=== PATIENT | male | born 1945 | race Caucasian/White ===

== ENCOUNTER 2018-03-22 22:47 | Inpatient (IN) ==
[2018-03-22] MEDS ORDERED: SOLU-MEDROL IV ONE (23:56)
[2018-03-22] MEDS ORDERED: DUONEB (A & A) INH ONE (23:56)
[2018-03-23 01:00] LABS: BASO# 0.05 X1000 (0.0-0.2); BASO% 0.6 % (0.0-0.8); EOS# 0.01 X1000 (0.0-0.7); EOS% 0.1 % (0.0-10.0); HEMATOCRIT 41.7 % (42.0-52.0); HEMOGLOBIN 13.5 g/dL (14.0-18.0); IMM GRAN# 0.03 X1000 (0.0-0.04); IMM GRAN% 0.4 % (0.0-0.5); LYMPH# 0.48 X1000 (1.2-3.4); LYMPH% 5.7 % (20.5-51.1); MCH 30.1 PG (27-31); MCHC 32.4 g/dL (33-37); MCV 93.1 FL (81-99); MONO# 1.46 X1000 (0.11-0.59); MONO% 17.2 % (1.7-9.3); MPV 10.6 FL (7.4-10.4); NEUT# 6.45 X1000 (1.4-6.5); PLT 178 X1000 (130-400); RBC 4.48 XMIL (4.7-6.1); RDW 13.6 % (11.5-14.5); WBC 8.48 X1000 (4.8-10.8)
[2018-03-23 01:09] LABS: AGAP 14; ALB/GLOB RATIO 1.5; ALBUMIN 3.9 g/dL (3.5-5.0); ALKALINE PHOSPHATASE 99 U/L (32-122); BUN 14 mg/dL (8-22); CALCIUM 8.8 mg/dL (8.8-10.2); CHLORIDE 94 mmol/L (98-107); COSMO 279; CREATININE 0.6 mg/dL (0.7-1.2); ESTIMATED GFR > 60; GLUCOSE 246 mg/dL (70-104); GOT 15 U/L (10-34); GPT 13 U/L (10-44); POTASSIUM 3.7 mmol/L (3.5-5.1); SODIUM 135 mmol/L (136-145); TCO2 27 mmol/L (25-35); TOTAL BILIRUBIN 0.86 mg/dL (0.20-1.00); TOTAL PROTEIN 6.5 g/dL (6.3-8.3)
[2018-03-23] MEDS ORDERED: TAMIFLU PO ONE (01:29)
--- NOTE | 2018-03-23 01:38 | PROVIDER DOCUMENTATION ---
This chart was entered by Job Newton Scribe, acting as scribe for Raúl Mcdowell MD. HPI-General Adult - General Chief Complaint: Near Syncope Stated Complaint: SYNCOPE Time Seen by Provider: 03/22/18 23:47 Source: family Allergies/Adverse Reactions: Patient Allergies Allergy/AdvReac Type Severity Reaction Status Date / Time No Known Allergies Allergy Verified 03/22/18 23:16 Home Medications: Home Medication List Medication Instructions Recorded Confirmed Last Taken Type Budesonide/Formoterol Inhaler 2 puff INH BID 07/26/15 05/22/17 05/21/17 09:00 History [Symbicort 160/4.5 Microgm Inhaler] Duloxetine [Cymbalta] 60 mg PO DAILY 07/26/15 05/22/17 05/21/17 09:00 History Glimepiride 2 mg PO DAILY 07/26/15 05/22/17 05/21/17 09:00 History Insulin Glargine,Hum.rec.anlog 40 units SQ BID 07/26/15 05/22/17 05/21/17 08:00 History [Lantus Solostar] Metformin HCl [Glucophage] 1,000 mg PO BID 07/26/15 05/22/17 05/21/17 09:00 History Carvedilol [Coreg] 3.125 mg PO BID #60 tablet 07/30/15 05/22/17 05/21/17 09:00 Rx Furosemide [Lasix] 40 mg PO DAILY #30 tablet 07/30/15 05/22/17 05/21/17 09:00 Rx LISINOpril [Prinivil] 10 mg PO DAILY #30 tablet 07/30/15 05/22/17 05/21/17 09: 00 Rx Aspirin [Aspirin EC] 1 tab PO DAILY 09/15/15 05/22/17 05/21/17 History PRAVAstatin [Pravachol] 40 mg PO QHS 09/16/15 05/22/17 05/20/17 21:00 History Sacubitril/Valsartan [Entresto 24 1 each PO BID 05/22/17 05/22/17 05/21/17 History mg-26 mg Tablet] Spironolactone 12.5 mg PO DAILY 05/22/17 05/22/17 05/21/17 History CefDINIR [Omnicef] 300 mg PO BID #14 cap 05/24/17 Unknown Rx Doxycycline 100 mg PO BID #14 tab 05/24/17 Unknown Rx Ipratropium/Albuterol INH 1 puff INH RTQ6H #1 inhaler 05/24/17 Unknown Rx [Combivent Respimat Inhaler] - History of Present Illness -Gen Adult Nature of Presenting Problems: Pt is a 73 y/o who comes to the ED with weakness, cough and SOB. Pt has generalized not feeling well for a couple of day. Tonight pt removed his home O2 of 2L to go to the bathroom. Family states he became weak and went to the ground. Family denies pt hitting his head. Location of Pain/Injury: reports: generalized Pain Radiation: reports: no radiation Quality of Pain: reports: aching Severity: reports: severe Onset/Duration: reports: gradual, 2 days ago Timing: reports: getting worse Context/Activities at Onset: reports: none Modifying Factors: improves with: nothing Associated Symptoms: reports: cough, shortness of breath, weakness. denies: diarrhea, fever/chills, trouble walking Similar Symptoms Previously?: No Recently seen or treated by another doctor?: No Review of Systems - Adult - REVIEW OF SYSTEMS - ADULT ROS:: ROS per family Constitutional: reports: other (gerneralized weakness). denies: chills, fever Eyes: reports: no symptoms reported Ears, Nose, Mouth & Throat: reports: no symptoms reported Cardiovascular: denies: chest pain, edema, palpitations Respiratory: reports: cough, shortness of breath. denies: wheezing Gastrointestinal: denies: abdominal pain, nausea, vomiting Genitourinary: denies: dysuria, discharge Musculoskeletal: denies: back pain, neck pain Integumentary: reports: no symptoms reported Neurological: denies: dizziness/vertigo, headache/migraines, paresthesia, slurred speech, syncope Psychiatric: reports: no symptoms reported Endocrine: reports: no symptoms reported Hematologic/Lymphatic: reports: no symptoms reported Allergic/Immunologic: reports: no symptoms reported All Other Systems: Reviewed and Negative Past History - Adult - PAST MEDICAL HISTORY-ADULT Review of Records: reports: Old Records Reviewed, Nursing Assessment Review, Medications Reviewed Major Childhood Illnesses: reports: denies history Cardiovascular: reports: CHF, HTN, hyperlipidemia Respiratory: reports: COPD, sleep apnea Genitourinary: reports: kidney disease - IMMUNIZATION STATUS Childhood Immunizations: See Nurse Assessment Flu Vaccine: See Nurse Assessment - FAMILY HISTORY Family History: reviewed, not pertinent - SOCIAL HISTORY Smoking: non-smoker, quit greater than 1 year Living Situation: family Physical Exam-General - PHYSICAL EXAM-ADULT Initial Vital Signs Reviewed: Yes - CONSTITUTIONAL General Appearance: alert, slow to respond (Family states pt is not at his baseline). negative: appears well (ill in appearance) - EYES Eyes: PERRL/EOMI, pink conjunctivae - HEAD, EARS, NOSE, MOUTH & THROAT HENMT: moist mucous membranes, normal ENT inspection, pharynx normal - NECK Neck: non-tender, full range of motion, supple, normal inspection - RESPIRATORY Respiratory: no pleuratic chest pain, decreased breath sounds, increased rate. negative: no respiratory distress (hypoxic on arrival with EMS) - CARDIOVASCULAR Cardiovascular: normal peripheral pulses, regular rate, rhythm - GASTROINTESTINAL (ABDOMEN) Abdominal Exam: non tender, soft - MUSCULOSKELETAL Back Exam: normal inspection, no CVA tenderness, no vertebral tenderness Extremity: normal range of motion, non-tender, normal gait, pedal edema - SKIN Integumentary: normal color, normal turgor, warm/dry - NEUROLOGIC Neurologic: grossly normal, no motor/sensory deficits - PSYCHIATRIC Psych/Mental Status: normal mood/affect, normal thought process, oriented x 3. negative: normal thought content (Pt slow to answer questions and family provides ROS) Progress - PLAN OF CARE/RESULTS Progress/Plan/Lab Results: Vital Signs - 8 hr 03/22/18 22:51 Temperature 98.6 F Pulse Rate 95 H Respiratory Rate 22 Blood Pressure 134/65 O2 Sat by Pulse Oximetry 99 Result Diagrams: 03/23/18 23:44 03/23/18 23:44 - EKG 1 Time of EKG reading by physician:: 23:45 EKG Read and Signed by:: Raúl Mcdowell EKG Interpretation (*Must complete 3 of following elements*): Abnormal Rate: 88 Rhythm: Sinus with 1st degree AV block [place]: left QRS: RBB, LVH Comments: Inferior infarct - XRAY 1 XRAY Study: Chest Impression: Abnormal, See EMR Report XRAY Interpretation: fluid overload per ED Dr Mcdowell Departure - Departure Date of Disposition Decision: 03/23/18 Time of Disposition Decision: 01:37 DIAGNOSIS: Influenza A Disposition: ADMITTED INPATIENT 09 Certified Medical Emergency: Emergent Condition: Stable Referrals and Follow-Ups: Disha Henning MD [Primary Care Provider] - - Critical Care Note This patient required my direct & personal management of CC.: No Attestation - Physician/ LILLIAN Attestation Patient care was provided by Advanced Practice Provider:: No The physician spent face to face time with patient:: Yes Advanced Practice Provider documentation review:: Supervising physician onsite and consulted in the evaluation and care of this patient. The physician did have a face to face encounter with the patient. This chart was documented by the indicated scribe, (Job Newton Scribe) and accurately reflects the services I performed and decisions made by me, Raúl Mcdowell MD, as attested by the provider's signature.
--- NOTE | 2018-03-23 04:30 | HISTORY AND PHYSICAL ---
CHIEF COMPLAINT: Shortness of breath and fall. HISTORY OF PRESENT ILLNESS: The patient is a 73-year-old male who comes in from home after a fall, but it was related to weakness, he has very significant issues getting up and around. He has not been feeling very well. He has been short of breath. Positive cough. He is on home O2 and usually 2 L. He took it off, he became very weak and went to the ground, but he did not pass out and he did not fall and hit his head. The patient came in with significant shortness of breath. He was hypoxic and tachypneic. No fever was noted though; however, with pending his workup he was found to have flu A positivity. He reports taking the flu shot. The patient has a history of CHF and COPD. He stopped smoking about 20 years ago, but he at least had a 20-pack- year history prior to that. Again workup in the ER revealed hypoxia, flu A, and COPD exacerbation for which he was admitted. He does report a cough productive of yellowish sputum. PAST MEDICAL HISTORY: 1. COPD. 2. Diabetes. 3. CHF. 4. Anxiety and depression. 5. Kidney stones. 6. Sleep apnea. PAST SURGICAL HISTORY: 1. Appendectomy. 2. Lithotripsy. FAMILY HISTORY: Father had prostate cancer. Mother had lung cancer and heart disease. ALLERGIES: No known drug allergies. MEDICATIONS: Reportedly he takes Pravachol 40, aspirin 81, Symbicort, Cymbalta, glimepiride, glargine, metformin, Entresto, spironolactone, Coreg, Lasix, DuoNeb and Prinivil. REVIEW OF SYSTEMS: His last EF per echocardiogram here was in June of 2017 that we have on record showing an EF of 60%, so he may just have diastolic dysfunction, although interestingly enough he is on Entresto or at least possibly on Entresto. His last echocardiogram was normal. In any case the patient was admitted for shortness of breath. Review of systems is otherwise from the 10- point review of systems. PHYSICAL EXAMINATION: VITAL SIGNS: Blood pressure was 133/67, heart rate of 90, respiratory rate of 21, temperature was 98.6 degrees, O2 sat was 95% on 4 L. GENERAL: A well-developed male in no acute distress. He has a cough and coryza on exam. HEAD: Normocephalic atraumatic. EYES: Pupils are equal, round and reactive to light. Extraocular moves were intact. Sclerae are anicteric. NECK: Supple. CARDIOVASCULAR: Regular rate and rhythm. No murmurs, gallops, or rubs. PULMONARY: He had diffuse rhonchi, occasional wheezing, no rales. GASTROINTESTINAL: Soft and nontender. Belly was protuberant. Bowel sounds positive. NEUROLOGIC: Cranial nerves II-XII were intact. MUSCULOSKELETAL: Was 4/5 in all 4 extremities. Somewhat limited mobility though and just sitting up. He is just very weak. SKIN EXAM: Clean, dry and intact. He had early changes consistent with rhinophyma. LABORATORY DATA: White count 8, hemoglobin and hematocrit 13 and 41, platelets 178,000. Basic was normal. ProBNP of 857. Influenza test was positive. Chest x-ray was clear with cardiomegaly, some haziness both sides, some vascular congestion. PROBLEM LIST: Assessment: A 73-year-old gentleman with history of congestive heart failure, diabetes, chronic obstructive pulmonary disease who presents with influenza and a chronic obstructive pulmonary disease exacerbation. 1. Influenza A. We will continue oseltamivir and follow closely. 2. Chronic obstructive pulmonary disease exacerbation. We will continue breathing treatments, steroids and follow. I have not initiated antibiotics, at this point I think the influenza is a major trigger. 3. Congestive heart failure with mild decompensation. We will continue diuretics, check serial enzymes, check an echocardiogram and follow clinically. 4. Diabetes. We will monitor blood sugars especially while on steroids. Continue sliding scale insulin. Check hemoglobin A1c. 5. Hypertension. We will continue to monitor closely. cc: Mina Lee MD
[2018-03-23] MEDS ORDERED: ZOFRAN IV PRN (04:51)
[2018-03-23] MEDS ORDERED: SODIUM CHLORIDE 0.9% INJ SCH (04:51)
[2018-03-23] MEDS: DUONEB (A & A) INH SCH ×6 (04:51→23:05)
[2018-03-23] MEDS ORDERED: DUONEB (A & A) INH PRN (04:51)
--- NOTE | 2018-03-23 07:53 | Diag Imaging Result Doc PS360 ---
EXAM: CHEST-PORTABLE 03/22/2018 HISTORY: sob TECHNIQUE: AP portable at 0023 on 03/23/2018. COMMENT: The inspiration is suboptimal. There is bibasilar atelectatic appearing opacity. The density of the opacities in the left base has diminished since 05/24/2017. Some of this may be due to fibrosis given the long-standing nature of the abnormality. IMPRESSION: Bibasilar atelectasis and/or fibrosis. Electronically signed by Luís Andrews 03/23/2018 7:51 AM
--- NOTE | 2018-03-23 08:07 | EKG Report ---
Test Performed on : 03/22/2018 11:45:16 PM Test Reason : sob Blood Pressure : / mmHG Vent. Rate : 088 BPM Atrial Rate : 088 BPM P-R Int : 270 ms QRS Dur : 144 ms QT Int : 396 ms P-R-T Axes : 054 -69 043 degrees QTc Int : 479 ms Sinus rhythm. with 1st degree AV block. Left axis deviation Right bundle branch block Minimal voltage criteria for LVH, may be normal variant Inferior infarct (cited on or before 22-MAY-2017) Abnormal ECG When compared with ECG of 22-MAY-2017 10:17, No significant change was found Unconfirmed Result
[2018-03-23] MEDS: LOVENOX SUBQ SCH (08:44)
[2018-03-23] MEDS: PROTONIX IV SCH (08:44)
[2018-03-23] MEDS: HUMALOG SUBQ SCH ×4 (08:44→22:02)
[2018-03-23] MEDS: TAMIFLU PO SCH ×2 (08:45→20:11)
[2018-03-23] MEDS: SOLU-MEDROL IV SCH (12:13)
--- NOTE | 2018-03-23 14:06 | ECHO REPORT ---
ORDER DATE: 03/23/2018 INTERPRETING PHYSICIAN: Jeffrey Ritchie MD ECHOCARDIOGRAPHIC MEASUREMENTS: Interventricular septum 1.4 cm. Left ventricular posterior wall 1.5 cm. Diastolic diameter 5.3 cm. Left atrium 3.9 cm. Aorta 3.8 cm. Left ventricular systolic diameter 3.4 cm. SUMMARY OF THE 2-DIMENSIONAL IMAGING: Technically suboptimal study. Poor acoustic window. Endocardium not well visualized in all views. Mitral valve was normal. Tricuspid valve was normal. The aortic valve leaflets were trileaflet. Pulmonic valve was normal. Peak velocity across the aortic valve less than 2 m/sec. There is no aortic stenosis or regurgitation. There is trace to mild mitral regurgitation. Trace tricuspid regurgitation. Peak velocity across the tricuspid valve was 2.2 m/sec. Normal left ventricular cavity size. Estimated ejection fraction of 55%. Endocardium not well visualized in all views. There is no pericardial effusion or obvious intracardiac mass or thrombus seen. Anterior echo-free space suggestive of pericardial fat pad noted. cc: MD Mina Sheets MD
[2018-03-23] MEDS ORDERED: LIPITOR PO SCH (21:00)
[2018-03-23] MEDS: COREG PO SCH (22:02)
[2018-03-23] MEDS: ENTRESTO 24 MG-26 MG TABLET PO SCH (22:02)
[2018-03-23] MEDS: BASAGLAR SUBQ SCH (22:03)
[2018-03-24] MEDS: SOLU-MEDROL IV SCH (00:29)
[2018-03-24] MEDS: DUONEB (A & A) INH SCH ×3 (03:10→11:34)
[2018-03-24] MEDS: LOVENOX SUBQ SCH (06:38)
[2018-03-24] MEDS: PROTONIX IV SCH (06:38)
[2018-03-24] MEDS: HUMALOG SUBQ SCH (06:38)
[2018-03-24 07:08] LABS: HEMATOCRIT 42.6 % (42.0-52.0); IMM GRAN# 0.02 X1000 (0.0-0.04); IMM GRAN% 0.3 % (0.0-0.5); LYMPH% 6.8 % (20.5-51.1); MCH 30.6 PG (27-31); MCHC 32.9 g/dL (33-37); MCV 93.2 FL (81-99); MONO% 8.2 % (1.7-9.3); MPV 9.9 FL (7.4-10.4); NEUT# 6.24 X1000 (1.4-6.5); NEUT% 84.7 % (42.2-75.2); PLT 227 X1000 (130-400); RBC 4.57 XMIL (4.7-6.1); RDW 13.4 % (11.5-14.5); WBC 7.36 X1000 (4.8-10.8)
[2018-03-24 07:18] LABS: AGAP 16; ALB/GLOB RATIO 1.2; ALBUMIN 3.8 g/dL (3.5-5.0); ALKALINE PHOSPHATASE 86 U/L (32-122); BUN 20 mg/dL (8-22); CALCIUM 8.8 mg/dL (8.8-10.2); CHLORIDE 91 mmol/L (98-107); COSMO 286; CREATININE 0.8 mg/dL (0.7-1.2); ESTIMATED GFR > 60; GLUCOSE 330 mg/dL (70-104); GOT 22 U/L (10-34); GPT 16 U/L (10-44); POTASSIUM 3.5 mmol/L (3.5-5.1); SODIUM 135 mmol/L (136-145); TCO2 28 mmol/L (25-35); TOTAL BILIRUBIN 0.53 mg/dL (0.20-1.00); TOTAL PROTEIN 7.1 g/dL (6.3-8.3)
[2018-03-24 07:25] LABS: HEMOGLOBIN A1C 7.4 % (4.8-6.0)
--- NOTE | 2018-03-24 07:39 | Diag Imaging Result Doc PS360 ---
EXAM: CHEST-2 VIEWS 03/24/2018 HISTORY: hypoxia TECHNIQUE: PA and lateral chest COMMENT: There is atelectasis appearing opacity bilaterally particularly in the left lower lobe. There has been gradual improvement in this regard since 05/24/2017. Some of the opacity may be due to fibrosis. IMPRESSION: Atelectasis versus fibrosis bilaterally. Electronically signed by Luís Andrews 03/24/2018 7:37 AM
[2018-03-24 07:51] VITALS: BP 153/84
[2018-03-24] MEDS: ENTRESTO 24 MG-26 MG TABLET PO SCH (08:54)
[2018-03-24] MEDS: TAMIFLU PO SCH (08:54)
[2018-03-24] MEDS: COREG PO SCH (08:54)
[2018-03-24] MEDS: BASAGLAR SUBQ SCH (08:55)
[2018-03-24] MEDS ORDERED: ALDACTONE PO SCH (09:00)
--- NOTE | 2018-03-24 15:33 | DISCHARGE SUMMARY ---
DATE: 03/24/2018 DISPOSITION: Home. FOLLOWUP: Patient's PCP, Dr. Disha Henning. CONSULTATION DURING THIS ADMISSION: None. IMAGING STUDIES OF SIGNIFICANCE: 1. A chest x-ray was done initially which showed bibasilar atelectasis and/or fibrosis. 2. An echocardiogram showed an ejection fraction of 55 with normal left ventricular cavity size. 3. A repeat chest x-ray this morning showed atelectasis versus fibrosis bilaterally. ADMISSION DIAGNOSES: 1. Influenza A. 2. Chronic obstructive pulmonary disease exacerbation. 3. Congestive heart failure with mild decompensation. 4. Diabetes mellitus. DIAGNOSES AT THE TIME OF DISCHARGE: 1. Acute on chronic hypoxemic respiratory failure. Patient is back on 2 liters; I guess that is what he is on at home. 2. Chronic obstructive pulmonary disease exacerbation. 3. Chronic pulmonary fibrosis. 4. Diabetes mellitus; presenting A1c 7.4. 5. Hypertension. 6. Influenza pneumonia. The patient is on Tamiflu for a total of 5 days. DISCHARGE MEDICATIONS: 1. Metformin 1 g b.i.d. 2. Glimepiride 2 mg daily. 3. Insulin glargine 40 units b.i.d. 4. Carvedilol 3.125 b.i.d. 5. Entresto 1 tablet b.i.d. 6. Spironolactone 12.5 mg daily. 7. Atorvastatin 40 mg p.o. at bedtime. 8. Doxycycline 100 mg b.i.d. 9. Tamiflu 75 mg b.i.d. 10. Prednisone 20 mg p.o. daily. PRESENTING COMPLAINT: Shortness of breath. HISTORY OF PRESENT COMPLAINT: Mr. Mane is a 73-year-old male, who has COPD with chronic hypoxemia on home oxygen of 2 L, came to the emergency department because of progressively worsening shortness of breath, cough with yellow expectoration. Upon presentation, patient was evaluated, was found to be positive for flu. A chest x-ray did show bibasilar atelectasis and some fibrosis. He was subsequently admitted for COPD exacerbation. HOSPITAL COURSE: Mr. Mane was initially admitted to the medical floor, was started on IV antibiotics and Tamiflu, as well as steroids and bronchodilation therapy. Over the course of the short hospital stay, he did improve remarkably. Shortness of breath got better. He was transitioned back to his 2 L of nasal cannula oxygenation. Cough expectorant also improved. He is currently on Tamiflu and his IV antibiotics have been switched to p.o. doxycycline to cover for possible MRSA as well. This morning Mr. Mane refers to feel a lot better. Vitals: Blood pressure is 153/84, pulse is 73, respiration is 18, temperature is 97.5 degrees. The patient is saturating about 94% on 2 L. Physical exam is unremarkable, except for mild air entry reduction in both lung cox. No crepitations and no rhonchi. Mr. Mane is fairly stable for discharge. He is going to follow up with his primary care doctor. He is also advised to have a follow-up with a flat locker as well. All the discharge instructions have been discussed with him and he voices understanding. TIME SPENT FOR DISCHARGE: 36 minutes. cc: MD Disha Joyce MD
== END 2018-03-24 12:15 | disposition home or self-care (01) | DRG 193 ==
LOC: ED 22:47 → SUATTDRO 03-23 06:13 → EDIPHOLD 03-23 06:13 → 3N 03-23 14:32
PROVIDERS: ATTEND Internal Medicine
CPT/HCPCS: 71010; 71020; 71045; 71046; 80053; 82550; 82948; 83036; 83880; 84484; 85025; 87275; 87276; 87804; 93005; 93306; 94640; 94761; 96372; 96374; 96375; 96376; 99285; A9270; C9113; J1650; J1815; J2930; S0164; XXXXX

== ENCOUNTER 2019-04-17 17:46 | Inpatient (IN) ==
[2019-04-17] MEDS ORDERED: SOLU-MEDROL IV ONE (18:08)
[2019-04-17] MEDS ORDERED: DUONEB (A & A) INH ONE (18:08)
--- NOTE | 2019-04-17 18:12 | Diag Imaging Result Doc PS360 ---
EXAM: CHEST-2 VIEWS 04/17/2019 HISTORY: SOB TECHNIQUE: PA and lateral chest COMMENT: There is ill-defined opacity in the lingula and left lower lobe which is worse than on 08/08/2018. IMPRESSION: Atelectasis versus pneumonia in the left lower lobe and lingula. Electronically signed by Luís Andrews 04/17/2019 6:09 PM
[2019-04-17] MEDS ORDERED: LEVAQUIN 750 MG/D5W 750 MG/150 ML IVPB IV ONE (18:13)
[2019-04-17 18:56] LABS: BASO# 0.05 X1000 (0.0-0.2); BASO% 0.7 % (0.0-0.8); EOS# 0.19 X1000 (0.0-0.7); EOS% 2.6 % (0.0-10.0); HEMATOCRIT 41.2 % (42.0-52.0); HEMOGLOBIN 13.3 g/dL (14.0-18.0); IMM GRAN# 0.02 X1000 (0.0-0.04); IMM GRAN% 0.3 % (0.0-0.5); LYMPH# 1.27 X1000 (1.2-3.4); LYMPH% 17.1 % (20.5-51.1); MCH 30.6 PG (27-31); MCHC 32.3 g/dL (33-37); MCV 94.9 FL (81-99); MONO# 1.41 X1000 (0.11-0.59); NEUT% 60.3 % (42.2-75.2); PLT 189 X1000 (130-400); RBC 4.34 XMIL (4.7-6.1); RDW 13.4 % (11.5-14.5); WBC 7.44 X1000 (4.8-10.8)
[2019-04-17 19:05] LABS: INR 1.02; PROTIME 13.5 Seconds (11.0-16.0)
[2019-04-17 19:05] LABS: URINE SOURCE CLEAN CATCH
[2019-04-17 19:06] LABS: PTT 30.6 Seconds (22.3-41.8)
--- NOTE | 2019-04-17 19:06 | PROVIDER DOCUMENTATION ---
This chart was entered by Beckie Cavanaugh Scribe, acting as scribe for Zen Garsia MD. HPI-General Adult - General Source: patient - History of Present Illness -Gen Adult Nature of Presenting Problems: pt is a 74 yr old male presenting with 3 day complaint of productive cough and fatigue, pt denies fever, shortness of breath or chest pain, pt reports he went to urgent care 1st but was referred to ER due to low BP and no xray availability. pt denies any other complaints. pt is on constant 2L home o2 Location of Pain/Injury: reports: none Pain Radiation: reports: no radiation Quality of Pain: reports: none Severity: reports: moderate Onset/Duration: reports: 3 days ago Timing: reports: still present Context/Activities at Onset: reports: light activity Modifying Factors: improves with: nothing Associated Symptoms: reports: cough, fatigue. denies: EENT symptoms, fever/chills, sinus congestion/drainage, shortness of breath Similar Symptoms Previously?: No Recently seen or treated by another doctor?: No <Zen Garsia - Last Filed: 04/17/19 19:48> <Santos Henning - Last Filed: 04/17/19 20:36> - General Chief Complaint: Shortness of Breath Stated Complaint: "PNEUMONIA" CLINIC REFERRED Time Seen by Provider: 04/17/19 18:05 Allergies/Adverse Reactions: Patient Allergies Allergy/AdvReac Type Severity Reaction Status Date / Time No Known Allergies Allergy Verified 03/22/18 23:16 Home Medications: Home Medication List Medication Instructions Recorded Confirmed Last Taken Type Budesonide/Formoterol Inhaler 2 puff INH BID 07/26/15 03/23/18 05/21/17 09:00 History [Symbicort 160/4.5 Microgm Inhaler] Glimepiride 2 mg PO DAILY 07/26/15 03/23/18 05/21/17 09:00 History Insulin Glargine,Hum.rec.anlog 40 units SQ BID 07/26/15 03/23/18 05/21/17 08:00 History [Lantus Solostar] Metformin HCl [Glucophage] 1,000 mg PO BID 07/26/15 03/23/18 05/21/17 09:00 History Carvedilol [Coreg] 3.125 mg PO BID #60 tablet 07/30/15 03/23/18 05/21/17 09:00 Rx Sacubitril/Valsartan [Entresto 24 1 each PO BID 05/22/17 03/23/18 05/21/17 History mg-26 mg Tablet] Spironolactone 12.5 mg PO DAILY 05/22/17 03/23/18 05/21/17 History Ipratropium/Albuterol INH 1 puff INH RTQ6H #1 inhaler 05/24/17 03/23/18 Unknown Rx [Combivent Respimat Inhaler] ATORVAstatin [Lipitor] 40 mg PO QHS 03/23/18 03/23/18 Unknown History Doxycycline 100 mg PO BID #14 tab 03/24/18 Unknown Rx Oseltamivir [Tamiflu] 75 mg PO BID #8 cap 03/24/18 Unknown Rx Prednisone [Deltasone] 20 mg PO DAILY #5 tab 03/24/18 Unknown Rx Review of Systems - Adult - REVIEW OF SYSTEMS - ADULT Constitutional: reports: fatique. denies: chills, fever Eyes: reports: no symptoms reported Ears, Nose, Mouth & Throat: denies: ear pain, sinus problem, throat pain Cardiovascular: denies: chest pain, palpitations, syncope Respiratory: reports: cough. denies: dyspnea on exertion, shortness of breath Gastrointestinal: denies: abdominal pain, diarrhea, nausea, vomiting Genitourinary: reports: no symptoms reported Musculoskeletal: reports: no symptoms reported Integumentary: reports: no symptoms reported Neurological: denies: dizziness/vertigo, headache/migraines Psychiatric: reports: no symptoms reported Endocrine: reports: no symptoms reported Hematologic/Lymphatic: reports: no symptoms reported Allergic/Immunologic: reports: no symptoms reported All Other Systems: Reviewed and Negative <Zen Garsia - Last Filed: 04/17/19 19:48> Past History - Adult - PAST MEDICAL HISTORY-ADULT Review of Records: reports: Old Records Reviewed, Nursing Assessment Review, Medications Reviewed, Social history reviewed & non-contributory. Major Childhood Illnesses: reports: denies history Cardiovascular: reports: CHF, HTN, hyperlipidemia Respiratory: reports: COPD, sleep apnea Gastrointestinal: reports: denies history Obstetrical/Gynecological: reports: denies history Genitourinary: reports: kidney disease Musculoskeletal: reports: denies history Neurological: reports: denies history Endocrine/Immune: reports: denies history Other Conditions: reports: denies history - IMMUNIZATION STATUS Childhood Immunizations: See Nurse Assessment Flu Vaccine: See Nurse Assessment - FAMILY HISTORY Family History: reviewed, not pertinent - SOCIAL HISTORY Smoking: quit greater than 1 year Substance Use: denies <Zen Garsia - Last Filed: 04/17/19 19:48> Physical Exam-General - PHYSICAL EXAM-ADULT Initial Vital Signs Reviewed: Yes - CONSTITUTIONAL General Appearance: appears well, alert, no apparent distress, obese - EYES Eyes: PERRL/EOMI - HEAD, EARS, NOSE, MOUTH & THROAT HENMT: normocephalic/atraumatic, moist mucous membranes, normal ENT inspection - RESPIRATORY Respiratory: chest non-tender, lungs clear, no respiratory distress, no accessory muscle use, decreased breath sounds (diminished bilateral bases) - CARDIOVASCULAR Cardiovascular: normal peripheral pulses, regular rate, rhythm, no edema - GASTROINTESTINAL (ABDOMEN) Abdominal Exam: normal bowel sounds, non tender, soft - LYMPHATIC Lymphatic: no adenopathy - MUSCULOSKELETAL Back Exam: normal inspection, no CVA tenderness, no vertebral tenderness Extremity: normal range of motion, non-tender, normal gait, normal inspection - SKIN Integumentary: normal color, normal turgor, warm/dry - NEUROLOGIC Neurologic: grossly normal, no motor/sensory deficits - PSYCHIATRIC Psych/Mental Status: normal mood/affect <Zen Garsia - Last Filed: 04/17/19 19:48> Progress - PLAN OF CARE/RESULTS Progress/Plan/Lab Results: Vital Signs - 8 hr 04/17/19 17:53 Temperature 97.7 F Pulse Rate 100 H Respiratory Rate 22 Blood Pressure 125/68 O2 Sat by Pulse Oximetry 91 L Orders Category Date Time Status Cardiac Monitoring NOW Care 04/17/19 17:58 Active IV Insertion NOW Care 04/17/19 17:58 Active NEWS Score >or=5:Order NEWS Bundle S.O. NOW Care 04/17/19 17:57 Active Notify Provider of NEWS Score NOW Care 04/17/19 17:58 Active CHEST-2 VIEWS [RAD] Stat Exams 04/17/19 17:50 Taken BLOOD CULTURE [BLDCUL] Stat Lab 04/17/19 17:58 Uncollected CBC WITH DIFF [HEME] Stat Lab 04/17/19 17:58 Uncollected CK PROFILE [SP CHEM] Stat Lab 04/17/19 17:58 Uncollected COMPREHENSIVE METABOLIC PANEL [CHEM] Stat Lab 04/17/19 17:58 Uncollected INFLUENZA SCREEN A/B Stat Lab 04/17/19 18:08 Uncollected LACTATE, PLASMA [CHEM] Lab 04/17/19 18:00 Uncollected LACTATE, PLASMA [CHEM] Lab 04/17/19 21:00 Uncollected LACTATE, PLASMA [CHEM] Lab 04/18/19 00:00 Uncollected PROTIME WITH INR [COAG] Stat Lab 04/17/19 17:58 Uncollected PTT [COAG] Stat Lab 04/17/19 17:58 Uncollected TROPONIN T HIGH SENSITIVITY Stat Lab 04/17/19 17:58 Uncollected URINALYSIS W/POSS RFLX CULT [URINALYSIS] Stat Lab 04/17/19 17:58 Uncollected Albuterol 2.5MG/Ipratrop 0.5MG [Duoneb (A & A)] Med 04/17/19 18:08 Discontinued 3 ml INH NOW ONE Methylprednisolone Sod Succ [Solu-Medrol] Med 04/17/19 18:08 Discontinued 125 mg IV STAT ONE Aerosol Treatments Routine Oth 04/17/19 18:08 Active Aerosol Treatments Stat Oth 04/17/19 18:08 Active O2 Per Protocol Stat Oth 04/17/19 17:58 Active Result Diagrams: 04/17/19 18:33 04/17/19 18:33 - XRAY 1 XRAY Study: Chest Impression: Abnormal (Signed EXAM: CHEST-2 VIEWS 04/17/2019 HISTORY: SOB TECHNIQUE: PA and lateral chest COMMENT: There is ill-defined opacity in the lingula and left lower lobe which is worse than on 08/08/2018. IMPRESSION: Atelectasis versus pneumonia in the left lower lobe and lingula. Electronically signed by Luís Andrews 04/17/2019 6:09 PM 04/17/191808 Interpreting Physician: Luís Andrews MD Dictated Date/Time: 04/17/191807 cc: Zen Garsia MD; Disha Henning MD) <Zen Garsia - Last Filed: 04/17/19 19:48> - PLAN OF CARE/RESULTS Progress/Plan/Lab Results: Vital Signs - 8 hr 04/17/19 17:53 04/17/19 18:22 04/17/19 19:26 Temperature 97.7 F Pulse Rate 100 H 100 H 85 Respiratory Rate 22 18 12 Blood Pressure 125/68 122/59 O2 Sat by Pulse Oximetry 91 L 96 04/17/19 18:40 Influenza Screen - Final Nasopharyngeal Laboratory Results - last 24 hr 04/17/19 04/17/19 04/17/19 18:33 18:33 18:33 WBC RBC Hgb Hct MCV MCH MCHC RDW Std Deviation Plt Count MPV Immature Gran % (Auto) Neut % (Auto) Lymph % (Auto) Schuyler % (Auto) Eos % (Auto) Baso % (Auto) Immature Gran # (Auto) Neut # (Auto) Lymph # (Auto) Schuyler # (Auto) Eos # (Auto) Baso # (Auto) PT INR PTT (Actin FS) Sodium 136 Potassium 3.8 Chloride 97 L Carbon Dioxide 24 L Anion Gap 15 BUN 20 Creatinine 0.9 Estimated GFR/1.73 m2 > 60 BUN/Creatinine Ratio 22 Glucose 248 H Calculated Osmolality 283 Calcium 8.7 L Total Bilirubin 0.67 AST 16 ALT 13 Alkaline Phosphatase 98 Creatine Kinase 80 Troponin T High Sens 15 Total Protein 6.0 L Albumin 3.3 L Globulin 2.7 Albumin/Globulin Ratio 1.2 Plasma Lactate 3.1 H Urine Source Urine Color Urine Turbidity Urine pH Ur Specific [place] Urine Protein Ur Glucose (Stick) Ur Ketones (Stick) Urine Blood Urine Nitrite Urine Bilirubin Urobilinogen Dipstick Urine Leukocytes Urine WBC (Auto) Urine RBC (Auto) U Epithel Cells (Auto) Urine Bacteria (Auto) Urine Crystals Small Round Cells Urine Casts Urine Yeast-like Cells 04/17/19 04/17/19 04/17/19 18:33 18:33 18:52 WBC 7.44 RBC 4.34 L Hgb 13.3 L Hct 41.2 L MCV 94.9 MCH 30.6 MCHC 32.3 L RDW Std Deviation 13.4 Plt Count 189 MPV 10.0 Immature Gran % (Auto) 0.3 Neut % (Auto) 60.3 Lymph % (Auto) 17.1 L Schuyler % (Auto) 19.0 H Eos % (Auto) 2.6 Baso % (Auto) 0.7 Immature Gran # (Auto) 0.02 Neut # (Auto) 4.50 Lymph # (Auto) 1.27 Schuyler # (Auto) 1.41 H Eos # (Auto) 0.19 Baso # (Auto) 0.05 PT 13.5 INR 1.02 PTT (Actin FS) 30.6 Sodium Potassium Chloride Carbon Dioxide Anion Gap BUN Creatinine Estimated GFR/1.73 m2 BUN/Creatinine Ratio Glucose Calculated Osmolality Calcium Total Bilirubin AST ALT Alkaline Phosphatase Creatine Kinase Troponin T High Sens Total Protein Albumin Globulin Albumin/Globulin Ratio Plasma Lactate Urine Source CLEAN CATCH Urine Color YELLOW Urine Turbidity HAZY Urine pH 5.5 Ur Specific [place] 1.026 Urine Protein 50 A Ur Glucose (Stick) 200 A Ur Ketones (Stick) TRACE A Urine Blood NEGATIVE Urine Nitrite NEGATIVE Urine Bilirubin SMALL A Urobilinogen Dipstick 3 A Urine Leukocytes LARGE A Urine WBC (Auto) TNTC A Urine RBC (Auto) <10 U Epithel Cells (Auto) <10 Urine Bacteria (Auto) NEGATIVE Urine Crystals NONE SEEN Small Round Cells Not Reportable Urine Casts Not Reportable Urine Yeast-like Cells Not Reportable Orders Category Date Time Status Cardiac Monitoring NOW Care 04/17/19 17:58 Active IV Insertion NOW Care 04/17/19 17:58 Completed NEWS Score >or=5:Order NEWS Bundle S.O. NOW Care 04/17/19 17:57 Active Notify Provider of NEWS Score NOW Care 04/17/19 17:58 Active CHEST-2 VIEWS [RAD] Stat Exams 04/17/19 17:50 Completed BLOOD CULTURE [BLDCUL] Stat Lab 04/17/19 18:40 Results CBC WITH DIFF [HEME] Stat Lab 04/17/19 18:33 Completed CK PROFILE [SP CHEM] Stat Lab 04/17/19 18:33 Completed COMPREHENSIVE METABOLIC PANEL [CHEM] Stat Lab 04/17/19 18:33 Completed INFLUENZA SCREEN A/B Stat Lab 04/17/19 18:40 Completed LACTATE, PLASMA [CHEM] Lab 04/17/19 18:33 Completed LACTATE, PLASMA [CHEM] Lab 04/17/19 21:00 Uncollected LACTATE, PLASMA [CHEM] Lab 04/18/19 00:00 Uncollected PROTIME WITH INR [COAG] Stat Lab 04/17/19 18:33 Completed PTT [COAG] Stat Lab 04/17/19 18:33 Completed TROPONIN T HIGH SENSITIVITY Stat Lab 04/17/19 18:33 Completed URINALYSIS W/POSS RFLX CULT [URINALYSIS] Stat Lab 04/17/19 18:52 Completed URINE MANUAL MICROSCOPIC [URINALYSIS] Stat Lab 04/17/19 18:52 Completed 0.9% Sodium Chloride Inj [Ns] 1,000 ml Med 04/17/19 19:43 Active IV 999 mls/hr Albuterol 2.5MG/Ipratrop 0.5MG [Duoneb (A & A)] Med 04/17/19 18:08 Di scontinued 3 ml INH NOW ONE Levofloxacin 750 mg/D5w [Levaquin 750 mg/D5w] Med 04/17/19 18:13 Discontinued 750 mg in 150 ml IV NOW Methylprednisolone Sod Succ [Solu-Medrol] Med 04/17/19 18:08 Discontinued 125 mg IV STAT ONE Aerosol Treatments Routine Oth 04/17/19 18:08 Completed Aerosol Treatments Stat Oth 04/17/19 18:08 Completed O2 Per Protocol Stat Oth 04/17/19 17:58 Active Result Diagrams: 04/17/19 18:33 04/17/19 18:33 - REASSESSMENT Reassessment #1 Time Reassessed: 20:05 Status: unchanged (paging dr gonzalez for admission. note lactic acidosis, CXR reviewed by [facility].) - CONSULTS/PCP/HOSPITALIST Notification #1 *Consult/PCP/Hospitalist*: DR GONZALEZ Time Discussed: 20:34 Consult Disposition: Admit <Santos Henning - Last Filed: 04/17/19 20:36> Departure <Zen Garsia - Last Filed: 04/17/19 19:48> - Departure Date of Disposition Decision: 04/17/19 Time of Disposition Decision: 20:34 Certified Medical Emergency: Emergent - Critical Care Note This patient required my direct & personal management of CC.: No <Santos Henning - Last Filed: 04/17/19 20:36> - Departure DIAGNOSIS: COPD exacerbation, Lactic acidosis Left lower lobe pneumonia Qualifiers: Pneumonia type: due to unspecified organism Qualified Code(s): J18.1 - Lobar pneumonia, unspecified organism UTI (urinary tract infection) Qualifiers: Urinary tract infection type: acute cystitis Hematuria presence: without hematuria Qualified Code(s): N30.00 - Acute cystitis without hematuria Disposition: ADMITTED INPATIENT 09 Condition: Stable Referrals and Follow-Ups: Disha Henning MD [Primary Care Provider] - Attestation - Physician/ LILLIAN Attestation The physician spent face to face time with patient:: Yes Advanced Practice Provider documentation review:: Supervising physician onsite and consulted in the evaluation and care of this patient. The physician did have a face to face encounter with the patient. <Santos Henning - Last Filed: 04/17/19 20:36> This chart was documented by the indicated scribe, (Beckie Cavanaugh, [place]) and accurately reflects the services I performed and decisions made by me, Zen Garsia MD, as attested by the provider's signature.
[2019-04-17 19:23] LABS: BILIRUBIN URINE SMALL (NEGATIVE); BLOOD URINE NEGATIVE (NEGATIVE); COLOR YELLOW; GLUCOSE URINE 200 mg/dL (NEGATIVE); KETONE URINE TRACE mg/dL (NEGATIVE); LEUKOCYTES URINE LARGE (NEGATIVE); NITRITE URINE NEGATIVE (NEGATIVE); PH URINE 5.5; PROTEIN URINE 50 mg/dL (NEGATIVE); SP GRAVITY URINE 1.026; TURBIDITY URINE HAZY (CLEAR); UROBILINOGEN URINE 3 mg/dL (NORMAL)
[2019-04-17 19:25] LABS: UR EPITHELIAL CELLS <10 /HPF (<10); URINE BACTERIA NEGATIVE /HPF; URINE RBC <10 /HPF (<10); URINE WBC TNTC /HPF (<10)
[2019-04-17 19:31] LABS: AGAP 15; ALB/GLOB RATIO 1.2; ALBUMIN 3.3 g/dL (3.5-5.0); ALKALINE PHOSPHATASE 98 U/L (32-122); BUN 20 mg/dL (8-22); CALCIUM 8.7 mg/dL (8.8-10.2); CHLORIDE 97 mmol/L (98-107); CK PROFILE 80 U/L (24-204); COSMO 283; CREATININE 0.9 mg/dL (0.7-1.2); ESTIMATED GFR > 60; GLUCOSE 248 mg/dL (70-104); GOT 16 U/L (10-34); GPT 13 U/L (10-44); POTASSIUM 3.8 mmol/L (3.5-5.1); SODIUM 136 mmol/L (136-145); TCO2 24 mmol/L (25-35); TOTAL BILIRUBIN 0.67 mg/dL (0.20-1.00)
[2019-04-17 19:32] LABS: URINE CRYSTALS NONE SEEN
[2019-04-17] MEDS ORDERED: NS 1,000 ML IV ONE ×2 (19:43→20:35)
[2019-04-17] MEDS ORDERED: DUONEB (A & A) INH PRN (22:13)
[2019-04-17] MEDS: DUONEB (A & A) INH SCH (23:16)
[2019-04-18] MEDS ORDERED: NS 500 ML IV ONE (02:40)
[2019-04-18] MEDS ORDERED: NS 500 ML IV SCH (02:45)
[2019-04-18] MEDS: SOLU-MEDROL IV SCH ×2 (03:13→11:52)
[2019-04-18] MEDS: DUONEB (A & A) INH SCH ×5 (05:38→19:22)
--- NOTE | 2019-04-18 06:14 | HISTORY AND PHYSICAL ---
CHIEF COMPLAINT: The patient has a chief complaint of a cough for about 2 to 3 days. HISTORY OF PRESENT ILLNESS: Mr. Leroy Mane is a 74-year-old male with a history of COPD, diabetes mellitus, congestive heart failure, hypertension, sleep apnea, nephrolithiasis as well as arthritis who presents to the hospital because of cough which he has had for about 2 to 3 days. Cough is productive of yellowish sputum. He does have associated shortness of breath. No wheezing. No hemoptysis. The patient is a non cigarette smoker. When he presented to the emergency room, x-ray of the chest showed evidence of atelectasis versus pneumonia in the left lower lobe and lingula. The patient admitted to the floor for further management. PAST MEDICAL HISTORY: COPD. Diabetes mellitus. Congestive heart failure. Anxiety disorder. Depression. History of nephrolithiasis. Obstructive sleep apnea. PAST SURGICAL HISTORY: He has had an appendectomy. Cataract extraction. Lithotripsy. SOCIAL HISTORY: No history of cigarette smoking. No alcohol or drug use. ALLERGIES: No known medication allergies. FAMILY HISTORY: Positive for heart disease. MEDICATIONS: His medications include the following. 1. Symbicort 160/4.5 2 puffs twice a day. 2. Glimepiride 2 mg p.o. daily. 3. Lantus 40 units subcutaneous twice a day. 4. Metformin 1 g twice a day. 5. Coreg 3.125 g p.o. twice a day. 6. Entresto 24/26 1 twice a day. 7. Spironolactone 12.5 mg p.o. daily. 8. Combivent Respimat 1 puff every 6 hours. 9. Atorvastatin 40 mg p.o. at bedtime. 10. Doxycycline 100 mg p.o. twice a day. 11. Tamiflu 75 mg p.o. twice. 12. Prednisone 20 mg p.o. daily. REVIEW OF SYSTEMS: Constitutional: No fever. 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 Eyes: Uses glasses. ENT: He has sinus problems. No hearing loss. Cardiovascular: No chest pain. GI: No nausea, vomiting, diarrhea, constipation, or abdominal pain. : No dysuria. Dermatology: The patient does have a history of skin cancer. Musculoskeletal: He has arthritis. Hematology: No bleeding disorder. Endocrinology: He has diabetes but no thyroid disease. Allergy to milk. Immunology: No sneezing, runny nose, watery eyes, or symptoms suggestive of allergic rhinitis. PHYSICAL EXAMINATION: VITAL SIGNS: Temperature 97.7 degrees, pulse 99, respiratory rate 20, blood pressure 146/80, and oxygen saturation is 98%. HEENT: Atraumatic. Normocephalic. He is anicteric. Pupils equal and poorly reactive to light. No oral lesions noted. NECK: No lymphadenopathy or thyromegaly. No jugular venous distention. Trachea is central. CARDIOVASCULAR: Distant heart sounds. RESPIRATORY: Good air entry bilaterally. ABDOMEN: Soft, obese and nontender. No masses felt. EXTREMITIES: No evidence of edema in the lower extremities. CENTRAL NERVOUS SYSTEM: No obvious focal deficit noted. LABORATORY DATA: WBC 7.45, hematocrit 41.2 with a platelet count of 189,000. Sodium of 136, potassium 3.8, chloride is 97, bicarb 24, BUN is 20, creatinine 0.8 and glucose 248. Calcium 8.7. UA shows large amount of leukocytes with numerous WBCs. X-ray of chest shows evidence of atelectasis versus pneumonia in the left lower lobe. ASSESSMENT AND PLAN: 1. Probable hospital-acquired pneumonia. Maintain patient on antibiotics. Obtain sputum as well as blood cultures. 2. COPD stable. Nebulized bronchodilators as needed. 3. Chronic diastolic congestive heart failure. Monitor intakes and outputs as well as daily weights. Use diuretics as needed. 4. Diabetes mellitus. Maintain patient on blood sugar monitoring as well as sliding scale insulin. Check hemoglobin A1c level. Recommend diabetic diet. 5. Hypertension. Optimize blood pressure control. 6. Obstructive sleep apnea. The patient may bring CPAP machine from home if does have one, and use while in the hospital. 7. Urinary tract infection. Obtain urine culture. Follow up on blood cultures. Maintain the patient on antibiotics. 8. Deep vein thrombosis prophylaxis. Sequential compression devices. 9. Gastrointestinal prophylaxis. Proton pump inhibitor. cc: Harvey Mckinney MD
[2019-04-18] MEDS: HUMULIN R SUBQ SCH ×4 (06:49→21:59)
[2019-04-18 07:57] LABS: HEMOGLOBIN A1C 7.2 % (4.8-6.0)
[2019-04-18] MEDS ORDERED: DUONEB (A & A) ONE (08:05)
[2019-04-18] MEDS: ALDACTONE PO SCH (09:53)
[2019-04-18] MEDS: COREG PO SCH ×2 (09:53→21:59)
[2019-04-18] MEDS: PRAVACHOL PO SCH (09:53)
[2019-04-18] MEDS: CYMBALTA PO SCH (09:53)
[2019-04-18] MEDS: ENTRESTO 24 MG-26 MG TABLET PO SCH ×2 (09:53→21:59)
[2019-04-18] MEDS ORDERED: LANTUS INSULIN SUBQ ONE (14:45)
--- NOTE | 2019-04-18 15:16 | PROGRESS NOTE ---
DATE: 04/18/2019 SUBJECTIVE: I have seen and examined Mr. Mane today. Mr. Mane is a 74-year-old, gentleman who has a history of ischemic cardiomyopathy, congestive heart failure, diabetes mellitus, hypertension, and COPD, on home oxygen, presented to the emergency room because of shortness of breath which has progressively gotten worse, associated with cough, sputum production which is yellowish to dark. Upon presenting to the emergency room, he was found to be in hypoxemic failure. He was started back on supplemental oxygen. Imaging studies were done including a chest x-ray which showed atelectasis versus pneumonia in the left lower lobe and lingula. OBJECTIVE: Vital Signs: This morning, blood pressure is 138/69, pulse of 97, respirations are 18, temperature is 97.3 degrees, patient is saturating 97% on 3 L. General Examination: Mr. Mane is a 74-year-old, morbidly obese, gentleman. He is in bed. No distress. HEENT: Mucosa is pink and moist. Anicteric. Acyanotic. Neck: Supple. Chest: Air entry was bilaterally reduced, more so to the left posterior lung field. It was associated with some end- expiratory wheezing. Cardiovascular: Regular rate and rhythm. GI: Abdomen is soft. Distended but nontender. Extremities: No pedal edema. 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 No focal deficit. Laboratory Data: Has been reviewed from yesterday. CBC was unremarkable. Chemistry also is unremarkable except that glucose is slightly more elevated. ASSESSMENT: 1. Acute on chronic hypoxemic respiratory failure. 2. Chronic obstructive pulmonary disease exacerbation. 3. Left lower lobe infiltrate, concerning for pneumonia. The patient is on antimicrobial coverage. 4. History of congestive heart failure secondary to ischemic cardiomyopathy, currently euvolemic. 5. Diabetes mellitus with a presenting A1c of 7.2. The patient's glucoses are slightly elevated because of steroid use. We are going to continue to titrate. PLAN: In general, I think Mr. Mane is doing well. Breathing has significantly improved. He is still on 3 L of supplemental oxygen. He is normally on 2. We will continue to titrate is down. His lung findings seem to have remarkably improved. We are going to continue with the current IV antibiotics, nebulization, and weaning down on the steroids. We will re-evaluate him tomorrow and see if he can be discharged. cc: Remington Ramirez MD
[2019-04-18] MEDS ORDERED: HUMALOG SUBQ ONE (18:21)
[2019-04-18] MEDS ORDERED: LEVAQUIN 750 MG/D5W 750 MG/150 ML IVPB IV SCH (20:00)
[2019-04-19] MEDS ORDERED: SOLU-MEDROL IV SCH
[2019-04-19] MEDS: HUMULIN R SUBQ SCH ×4 (00:25→12:31)
[2019-04-19] MEDS: DUONEB (A & A) INH SCH ×3 (03:26→11:23)
[2019-04-19 08:56] LABS: IRON SATURATION 41 %; TIBC 219 ug/dL; TOTAL IRON 90 ug/dL (53-167); UNBOUND IRON 129 ug/dL (112-346)
[2019-04-19] MEDS ORDERED: LANTUS INSULIN SUBQ SCH (09:00)
[2019-04-19] MEDS: COREG PO SCH (09:30)
[2019-04-19] MEDS: CYMBALTA PO SCH (09:30)
[2019-04-19] MEDS: PRAVACHOL PO SCH (09:30)
[2019-04-19] MEDS: ENTRESTO 24 MG-26 MG TABLET PO SCH (09:30)
[2019-04-19] MEDS: ALDACTONE PO SCH (09:30)
[2019-04-19 09:32] LABS: FERRITIN 200 ng/mL (30-400)
[2019-04-19 11:15] VITALS: BP 141/75
--- NOTE | 2019-04-20 15:14 | DISCHARGE SUMMARY ---
ADMISSION DATE: 04/17/2019 DISCHARGE DATE: 04/19/2019 DISPOSITION: Home. FOLLOW-UP: Dr. Disha Henning. CONSULTATION DURING THIS ADMISSION: None. IMAGING STUDIES OF SIGNIFICANCE: Chest x-ray did show atelectasis versus pneumonia in the left lower lobe and lingula. ADMISSION DIAGNOSES: 1. Probable hospital-acquired pneumonia. 2. Chronic obstructive pulmonary disease. 3. Congestive heart failure. 4. Diabetes. 5. Urinary tract infection. DISCHARGE DIAGNOSES: 1. Acute on chronic hypoxemic respiratory failure. 2. Chronic obstructive pulmonary disease in mild exacerbation. 3. Left lower lobe infiltrate concerning for pneumonia. 4. Congestive heart failure secondary to ischemic cardiomyopathy with ejection fraction of 40 to 45 percent. 5. Diabetes mellitus with presenting A1c of 7.2. DISCHARGE MEDICATIONS: 1. Metformin 1000 b.i.d. 2. Glimepiride 2 mg p.o. daily. 3. Symbicort. 4. Insulin glargine 55 units b.i.d. 5. Entresto 24 one tablet b.i.d. 6. Spironolactone 25 mg p.o. daily. 7. Pravastatin 40 mg p.o. daily. 8. Combivent inhaler. 9. Duloxetine 60 mg p.o. daily. 10. Coreg 6.25 b.i.d. 11. Prednisone 20 mg p.o. daily. 12. Levaquin 500 mg p.o. daily. PRESENTING COMPLAINT: Cough for 2 to 3 days. HISTORY OF PRESENTING COMPLAINT: Mr. Mane is a 74-year-old gentleman with history of multiple comorbidities including COPD, diabetes, congestive heart failure, cardiomyopathy, ischemic cardiomyopathy, who came to the emergency room because of cough. Upon presenting, Mr. Mane was evaluated, was found to have saturation of 91%, wheezing, was admitted to the medical floor for COPD exacerbation and possible pneumonia. During the short course of the hospital stay, his bronchospasm improved. He was started on bronchodilation therapy, steroids, and antimicrobial therapy. His saturation also improved. This morning, Mr. Mane refers to be doing a whole lot better. All of his other comorbidities were addressed during the hospital course. We think he is stable enough to be discharged. Mr. Mane himself feels strong enough and he thinks he is at his baseline and that he can be discharged. At the time of the discharge, his blood pressure is 141/75, pulse of 80, respirations 18, temperature 97.7 degrees. The patient was saturating 94 percent on 2 L, which is his baseline needs. All of the discharge instructions have been discussed with him and he voiced understanding. Time spent for discharge is 32 minutes. cc: Remington Ramirez MD
== END 2019-04-19 13:35 | disposition home or self-care (01) | DRG 177 ==
LOC: ED 17:46 → 4N 22:57 → SUATTDRO 22:57
PROVIDERS: ATTEND Internal Medicine